=== PATIENT | female | born 1935 | race Caucasian/White ===

== ENCOUNTER → 2016-10-30 | Outpatient (CLI) | payer OTHER ==
[~2016-10-30] MED LIST: ASPIR 8181 MG PO; CALCIUM500 M1 PO; DILTIAZEM 24HR180 M1 PO; ELIQUIS5 MG PO; GUIATUSS DM SY120 ML PO; HYDROCODONE-AP1 EAC6 PO; LEVOTHYROXINE0.05 MG PO; LOPRESSOR50 PO; NITROFURANTOIN50 M2 PO; SORINE 80 MG TA80 M1 PO; ZOCOR 10 MG TAB10 MG PO
== END ==
LOC: RAD 01:12
DX: Z12.31 Encounter for screening mammogram for malignant neoplasm of breast (principal)

== ENCOUNTER → 2017-07-04 | Outpatient (CLI) | payer OTHER ==
[~2017-07-04] MED LIST changes: +PREDNISONE 20 M20 MG PO; +TRAMADOL 50 MG50 MG PO
== END ==
LOC: ULTRA 10:21
DX: E03.9 Hypothyroidism, unspecified (principal); Z85.3 Personal history of malignant neoplasm of breast

== ENCOUNTER 2017-10-16 17:50 | Emergency (ER) | payer OTHER ==
[~2017-10-16] VITALS: Ht 160 cm; Wt 60.3 kg
[~2017-10-16 17:50] MED LIST changes: -PREDNISONE 20 M20 MG PO; -TRAMADOL 50 MG50 MG PO
[2017-10-16 19:07] LABS: HEMATOCRIT 44.4 % (37.0-47.0); MCH 31.2 pg (26.0-34.0); MCHC 33.8 g/dL (28.0-37.0); MCV 92.3 fL (80.0-100.0); PLATELET COUNT 240 thou/uL (150-400); RBC 4.81 mil/uL (4.20-5.00); RDW 13.8 % (10.5-14.5); WBC 10.5 thou/uL (4.0-11.0)
[2017-10-16 19:21] LABS: CALCIUM 9.7 mg/dL (8.5-10.1); CREATININE 0.9 mg/dL (0.6-1.0); POTASSIUM 4.2 mmol/L (3.5-5.1)
[2017-10-16 19:22] LABS: APTT 26.6 Seconds (24.5-32.8); PROTIME 10.2 Seconds (9.3-11.4)
[2017-10-16 19:26] LABS: TOTAL BILIRUBIN 0.4 mg/dL (<0.1-1.0); TOTAL PROTEIN 7.4 g/dL (6.4-8.2); URIC ACID* 5.8 mg/dL (2.6-7.2)
[2017-10-16 19:31] LABS: ABSOLUTE NEUTROPHILS 7.5 thou/uL (1.4-8.2)
[2017-10-16] MEDS ORDERED: PREDNISONE 20 M20 MG PO (19:59)
[2017-10-16] MEDS ORDERED: TRAMADOL 50 MG50 MG PO (19:59)
== END 2017-10-16 20:37 | disposition home or self-care (01) ==
LOC: ER 17:50
PROVIDERS: Emergency Medicine
DX: M77.9 Enthesopathy, unspecified (principal); M19.90 Unspecified osteoarthritis, unspecified site; E03.9 Hypothyroidism, unspecified; Z90.49 Acquired absence of other specified parts of digestive tract; Z85.42 Personal history of malignant neoplasm of other parts of uterus; Z88.8 Allergy status to other drugs, medicaments and biological substances

== ENCOUNTER → 2017-11-14 | Outpatient (CLI) | payer OTHER ==
[~2017-11-14] MED LIST changes: +PREDNISONE 20 M20 MG PO; +TRAMADOL 50 MG50 MG PO
== END ==
LOC: RAD 03:12
DX: Z12.31 Encounter for screening mammogram for malignant neoplasm of breast (principal); I25.84 Coronary atherosclerosis due to calcified coronary lesion; R91.8 Other nonspecific abnormal finding of lung field

== ENCOUNTER 2018-07-09 15:18 | Emergency (ER) | payer OTHER ==
[~2018-07-09] VITALS: Ht 165.1 cm; Wt 61.2 kg
[2018-07-09 15:39] LABS: ABSOLUTE NEUTROPHILS 4.9 thou/uL (1.4-8.2); BASOPHILS 0.4 % (0.0-2.0); EOSINOPHILS 3.7 % (0.0-3.0); HEMATOCRIT 45.8 % (37.0-47.0); HEMOGLOBIN 15.7 gm/dL (12.0-15.0); MCH 31.9 pg (26.0-34.0); MCHC 34.4 g/dL (28.0-37.0); MCV 92.9 fL (80.0-100.0); MONOCYTES 11.3 % (1.0-8.0); PLATELET COUNT 228 thou/uL (150-400); POLYS 59.6 % (36.0-66.0); RBC 4.92 mil/uL (4.20-5.00); RDW 13.4 % (10.5-14.5); WBC 8.2 thou/uL (4.0-11.0)
[2018-07-09 15:58] LABS: ANION GAP 10 mmol/L (7-16); BUN 14 mg/dL (7-18); CALCIUM 9.6 mg/dL (8.5-10.1); CHLORIDE 106 mmol/L (98-107); CO2 28 mmol/L (21-32); GLUCOSE 139 mg/dL (74-106); POTASSIUM 3.9 mmol/L (3.5-5.1); SODIUM 144 mmol/L (136-145); TROPONIN-I <0.06 ng/mL (<0.06)
[2018-07-09 16:44] LABS: URINE BILIRUBIN NEGATIVE (Negative); URINE BLOOD NEGATIVE (Negative); URINE CLARITY CLEAR; URINE COLOR YELLOW; URINE GLUCOSE-RANDOM* NEGATIVE (Negative); URINE KETONES NEGATIVE (Negative); URINE LEUKOCYTES-REFLEX TRACE (Negative); URINE NITRITE-REFLEX NEGATIVE (Negative); URINE PROTEIN (DIPSTICK) NEGATIVE (Negative); URINE UROBILINOGEN 0.2 E.U./dl (0.2-1.0)
[2018-07-09 17:28] VITALS: BP 119/64
--- NOTE | 2018-07-10 08:36 | EKG ---
[place] [address] [facility] [place] [address] ELECTROCARDIOGRAM REPORT Name: DEVYN HI [id number] ������������������ Admission: 07/09/18 ������������������ Attend Phys: Discharge: 07/09/18 ������������������ Date of : 33 Report #: [id number] ����������������������������������������������������������������� [id number] THIS REPORT FOR: //name// [facility] ED Test Date: 2018-07-09 Test Time: 15:44:25 Pat Name: DEVYN HI Department: Room: Gender: F Dice Manager: SHALA : 1935 Requested By: Onofre Butcher Order Number: [id number] MD: Nikko Bermudez Measurements Intervals [place] Rate: 83 P: 174 MN: 234 QRS: -50 QRSD: 95 T: 40 QT: 372 QTc: 437 Interpretive Statements Sinus or ectopic atrial rhythm Prolonged MN interval LAD, consider left anterior fascicular block Compared to ECG 07/17/2015 07:29:45 Ectopic atrial rhythm now present First degree AV block now present Atrial premature complex(es) no longer present ST (T wave) deviation no longer present Electronically Signed On 07-10-2018 8:36:16 PRESENTATION TEAM MEMBER by Nikko Bermudez [email or web address] ��������������������������������������������� <ELECTRONICALLY SIGNED> ���������������������������������������� By: Nikko Bermudez MD, [facility] ��������������������������������������������� 07/10/18 [id number] 1544 Nikko Bermudez MD, [facility] /EPI
== END 2018-07-09 17:22 | disposition home or self-care (01) ==
LOC: ER 15:18
PROVIDERS: Emergency Medicine
DX: R53.1 Weakness (principal); R42 Dizziness and giddiness; I48.91 Unspecified atrial fibrillation; E03.9 Hypothyroidism, unspecified; Z88.8 Allergy status to other drugs, medicaments and biological substances; Z90.710 Acquired absence of both cervix and uterus; Z90.49 Acquired absence of other specified parts of digestive tract

== ENCOUNTER 2018-09-11 07:17 | Inpatient (IN) | payer OTHER ==
[~2018-09-11] VITALS: Ht 160 cm; Wt 58.1 kg
[2018-09-11 07:17] VITALS: BP 149/78
[2018-09-11 07:41] LABS: ABSOLUTE NEUTROPHILS 18.3 thou/uL (1.4-8.2); BASOPHILS 0.3 % (0.0-2.0); EOSINOPHILS 0.1 % (0.0-3.0); HEMATOCRIT 50.3 % (37.0-47.0); HEMOGLOBIN 17.2 gm/dL (12.0-15.0); LYMPHOCYTES 2.5 % (24.0-44.0); MCH 31.9 pg (26.0-34.0); MCHC 34.1 g/dL (28.0-37.0); MCV 93.5 fL (80.0-100.0); MONOCYTES 4.9 % (1.0-8.0); PLATELET COUNT 295 thou/uL (150-400); POLYS 92.2 % (36.0-66.0); RBC 5.38 mil/uL (4.20-5.00); RDW 13.5 % (10.5-14.5); WBC 19.9 thou/uL (4.0-11.0)
[2018-09-11 08:05] LABS: CALCIUM 10.3 mg/dL (8.5-10.1); CREATININE 1.2 mg/dL (0.6-1.0); POTASSIUM 4.1 mmol/L (3.5-5.1)
[2018-09-11 08:10] LABS: ALBUMIN 4.5 g/dL (3.4-5.0); DIRECT BILIRUBIN 0.2 mg/dL (<0.1-0.3); TOTAL BILIRUBIN 1.1 mg/dL (<0.1-1.0); TOTAL PROTEIN 8.1 g/dL (6.4-8.2)
[2018-09-11] MEDS ORDERED: SYNTHROID75 MCG PO (08:47)
[2018-09-11] MEDS ORDERED: FLECAINIDE ACET50 M1 PO (08:48)
[2018-09-11] MEDS ORDERED: DIGOXIN125 MCG PO (08:48)
[2018-09-11] MEDS ORDERED: COMBIVENT INH (08:49)
[2018-09-11 09:06] LABS: URINE BILIRUBIN NEGATIVE (Negative); URINE BLOOD 1+ (Negative); URINE CLARITY SL CLOUDY; URINE COLOR YELLOW; URINE GLUCOSE-RANDOM* NEGATIVE (Negative); URINE KETONES 1+ (Negative); URINE LEUKOCYTES-REFLEX TRACE (Negative); URINE NITRITE-REFLEX NEGATIVE (Negative); URINE PROTEIN (DIPSTICK) 2+ (Negative); URINE UROBILINOGEN 0.2 E.U./dl (0.2-1.0)
[2018-09-11 09:27] LABS: SQUAMOUS 4-10 Moderate /LPF (0-3); TRANSITIONAL EPITHEL CELL 4-10 Moderate /LPF (None Seen)
[2018-09-11 09:28] LABS: URINE WBC-REFLEX 6-15 Few /HPF (0-5)
[2018-09-11 09:29] LABS: URINE RBC 0-2 Rare /HPF (0-2)
[2018-09-11 09:30] LABS: BACTERIA-REFLEX 1-9 Few /HPF (None Seen); CASTS None Seen /LPF (None Seen); CRYSTALS None Seen /LPF (None Seen)
[2018-09-11 10:03] VITALS: BP 137/70
[2018-09-11 15:52] VITALS: BP 145/75
[2018-09-11 19:21] VITALS: BP 141/63
[2018-09-11 19:47] VITALS: BP 141/63
[2018-09-12 03:49] VITALS: BP 129/51
[2018-09-12 05:39] LABS: HEMATOCRIT 41.6 % (37.0-47.0); MCH 32.4 pg (26.0-34.0); MCHC 34.1 g/dL (28.0-37.0); MCV 94.8 fL (80.0-100.0); RBC 4.39 mil/uL (4.20-5.00); RDW 14.3 % (10.5-14.5); WBC 6.3 thou/uL (4.0-11.0)
[2018-09-12 05:42] LABS: HEMOGLOBIN 14.2 gm/dL (12.0-15.0)
[2018-09-12 05:54] LABS: ALBUMIN 3.2 g/dL (3.4-5.0); CALCIUM 8.6 mg/dL (8.5-10.1); MAGNESIUM 2.1 mg/dL (1.8-2.4); POTASSIUM 3.5 mmol/L (3.5-5.1); TOTAL BILIRUBIN 1.2 mg/dL (<0.1-1.0); TOTAL PROTEIN 6.1 g/dL (6.4-8.2)
[2018-09-12 06:26] LABS: TSH 0.567 uIU/mL (0.358-3.740)
[2018-09-12 07:35] VITALS: BP 123/51
[2018-09-12 14:12] VITALS: BP 98/48
[2018-09-12 17:26] VITALS: BP 104/53
[2018-09-12 19:26] VITALS: BP 99/49
[2018-09-13 04:10] VITALS: BP 100/44
[2018-09-13 07:50] VITALS: BP 100/74
[2018-09-13 18:33] VITALS: BP 100/54
== END 2018-09-13 20:00 | disposition home or self-care (01) | DRG 872 ==
LOC: ER 07:17 → EROBS 09:37 → 4W 09:37 → EROBS 15:05 → 4W 15:07
PROVIDERS: Emergency Medicine; ADMIT Hospitalist
PROC: 0D9670Z Drainage of Stomach with Drainage Device, Via Natural or Artificial Opening (ICD-10-PCS; principal; 2018-09-11)
DX: A41.9 Sepsis, unspecified organism (principal); K56.50 Intestinal adhesions [bands], unspecified as to partial versus complete obstruction; A04.9 Bacterial intestinal infection, unspecified; E03.9 Hypothyroidism, unspecified; I48.91 Unspecified atrial fibrillation; Z88.8 Allergy status to other drugs, medicaments and biological substances; Z85.42 Personal history of malignant neoplasm of other parts of uterus; Z90.710 Acquired absence of both cervix and uterus; Z90.49 Acquired absence of other specified parts of digestive tract; Z79.899 Other long term (current) drug therapy
CPT/HCPCS: 10045

== ENCOUNTER → 2018-11-29 | Outpatient (CLI) | payer OTHER ==
[~2018-11-29] MED LIST changes: +COMBIVENT INH; +DIGOXIN125 MCG PO; +FLECAINIDE ACET50 M1 PO; +SYNTHROID75 MCG PO
== END ==
LOC: RAD 01:58
DX: Z12.31 Encounter for screening mammogram for malignant neoplasm of breast (principal)

== ENCOUNTER → 2019-05-21 | Outpatient (CLI) | payer OTHER ==
[~2019-05-21] MED LIST changes: +DOFETILIDE125 MCG PO; +ELIQUIS2.5 MG PO; +FLONASE 0.05%50 MCG NASAL; +GENTEAL TEARS1 EACH OPHTHALMIC; +NF; +NORCO 5-325 TA1 EAC1 PO
== END ==
LOC: RAD 11:17
DX: R91.8 Other nonspecific abnormal finding of lung field (principal); Z90.49 Acquired absence of other specified parts of digestive tract

== ENCOUNTER → 2019-11-05 | Outpatient (CLI) | payer OTHER | LOC: CAT 12:51 | PROVIDERS: ATTEND Internal Medicine | DX: J47.9 Bronchiectasis, uncomplicated (principal); J98.4 Other disorders of lung; R91.8 Other nonspecific abnormal finding of lung field ==

== ENCOUNTER → 2019-12-15 | Outpatient (CLI) | payer OTHER | LOC: BC 10:01 | PROVIDERS: ATTEND Internal Medicine | DX: Z12.31 Encounter for screening mammogram for malignant neoplasm of breast (principal) ==

== ENCOUNTER → 2021-01-06 | Outpatient (CLI) | payer OTHER | LOC: BC 10:05 → ULTRA 14:46 | PROVIDERS: ATTEND Internal Medicine | DX: R92.8 Other abnormal and inconclusive findings on diagnostic imaging of breast (principal) ==